=== PATIENT | male | born 1945 | race Caucasian/White ===

== ENCOUNTER 2023-10-16 13:08 | Outpatient (AMB) | payer MEDICARE, OTHER, SELFPAY ==
--- NOTE | 2023-10-16 13:17 | A.OFFVIS_ITS ---
Vital Signs 10/16/23 13:23 Height 5 ft 6 in Weight 182 lb BMI 29.4 BP 86/60 L Blood Pressure Location Rt brachial Position Sitting Respiration 16 Pulse 63 Pulse Source Pulse Oximeter Pulse Oximetry (%) 97 Oxygen Delivery Method Room Air Intake Visit Reasons: ENP-Headaches/? normal head CT/balance iss-Con Intake Note: Pt presents for new pt consultation for headaches. [employer] Required: No Allergies dibucaine Allergy (Intermediate, Verified 10/16/23 13:19) Unknown Cholinesterase Inhibitor(Carbamate) Allergy (Mild, Verified 10/16/23 13:19) Unknown HPI Comments Details: 78y/o male comes for evaluation of balance issues ? NPH on CT. He also had sharp right temporal pain lasting few hrs 6 mths ago. It resolved in 1 day. His primary checked his ESR CRP and was told it was normal. He denies headache snow. He had a CT Bernardo done which showed mild ventricular enlargement, cerebral atrophy, white matter disease. he reports being slower and off balance. No falls. No urinary incontinence. His memory is good.He denies any sleep issue s He had pacemaker placement 2 days ago [facility] Medical History (Updated 10/16/23 @ 13:59 by Rona Horton MD) Abnormal CT of brain Headache Depression Calculus (=stone) Polycythemia Diverticulosis Pacemaker Aortic stenosis Hyperlipemia CKD (chronic kidney disease) Diabetic retinopathy Ischemic cardiomyopathy Microalbuminuria Diabetes Surgical History Status post biventricular cardiac pacemaker insertion Family History Father No problems noted. Mother No problems noted. Social History Household Members: Spouse Housing: House Alcohol intake: never Tobacco use type: Cigarette Cigarette Packs Per Day: 1 Cigarettes Per Day: 20 Years Smoked: 70 Physical Exam Vital Signs: Last Vital Signs Pulse 63 10/16/23 13:23 Resp 16 10/16/23 13:23 BP 86/60 L 10/16/23 13:23 Pulse Ox 97 10/16/23 13:23 Oxygen Delivery Method Room Air 10/16/23 13:23 BMI result Body Mass Index 29.4 Const General: cooperative and comfortable Nutritional Appearance: average body habitus Orientation/consciousness: patient oriented x3 Eyes Pupils: Equal, round and reactive pupils present Neck Neck: Yes no meningeal signs Neuro Other: limited left shoulder movement due to discomfort from recent procedure ( pacemaker) gait- good stride, good base , mild slowness General: patient oriented x3, tone normal, moves all extremities, no meningeal signs and no focal motor deficits Cranial nerves: Yes Facial sensation intact/muscles of mastication intact, Yes Equal, round and reactive pupils present, Yes Bilaterally intact EOM present, Yes Nystagmus not present, Yes Normal facial strength present, Yes Midline tongue present and Yes Symmetric palate elevation present Cognition (Neuro): normal cognition Motor exam (neuro): 5/5 motor strength present throughout, no tremor noted and Normal motor muscle tone present throughout Deep tendon reflexes (DTR's): Right triceps reflex intensity grade: 1+, Left triceps reflex intensity grade: 1+, Rt Biceps (C5, C6): 1+, Left biceps reflex intensity grade: 1+, Right brachioradialis reflex intensity grade: 1+, Left brachioradialis reflex intensity grade: 1+, Right patellar reflex intensity grade: 1+ and Left patellar reflex intensity grade: 1+ Coordination: [id number] test normal Assessment & Plan Assessment & Plan (1) Headache: Comment: resolved in 24 hrs after onset Code(s): R51.9 - Headache, unspecified Category: Medical (2) Abnormal CT of brain: Code(s): R90.89 - Other abnormal findings on diagnostic imaging of central nervous system Category: Medical Plan Reviewed CT brain - the ventricular enlargement is likely related to his atrophy. he does not have clinical signs of normal pressure hydrocephalus. Suggested PT for gait training.check Vit b 12 levels F/u as needed. Coding Level of Care Code New Pt Level 4 (16350) Diagnoses Headache R51.[address] of brain R90.89
[2023-10-16 13:23] VITALS: BP 86/60; PULSE 63; RESP 16; O2SAT 97; BMI 29.4
== END 2023-10-16 13:48 | disposition home or self-care (01) ==
PROVIDERS: PCP Internal Medicine; Visit Provider Psychiatry & Neurology Neurology
DX: R51.9 Headache, unspecified (principal); R90.89 Other abnormal findings on diagnostic imaging of central nervous system
CPT/HCPCS: 99204

== ENCOUNTER → 2023-10-16 13:08 | Outpatient (BNVA) | payer MEDICARE, SELFPAY | PROVIDERS: PCP Internal Medicine; Visit Provider Psychiatry & Neurology Neurology | DX: R51.9 Headache, unspecified (principal); R90.89 Other abnormal findings on diagnostic imaging of central nervous system | CPT/HCPCS: 99202 ==